=== PATIENT | male | born 1995 | race Two or more races ===

== ENCOUNTER 2024-05-20 09:07 | Emergency (ER) | payer MEDICAID, SELFPAY ==
[2024-05-20 09:10] VITALS: BP 116/61; PULSE 115; RESP 14; TEMP 36.9; O2SAT 96
[2024-05-20 09:20] VITALS: BMI 36.5
--- NOTE | 2024-05-20 09:44 | EDNOTE_ITS ---
ED Seizures RME/HPI General Chief Complaint: Seizure Stated Complaint: SEIZURE Time Seen by Provider: 05/20/24 09:22 Arrival date/time: 05/20/24 09:07 RME / HPI RME / HPI Narrative: DR. K[facility]IS[facility] MAIN ED EVALUATION: 29-year-old male patient with a history of seizure disorder on Vimpat brought in by ambulance for seizure at home witnessed by , unknown duration. Patient states he may have forgotten to take his medication this morning. Related Data Allergies Allergy/AdvReac Type Severity Reaction Status Date / Time No Known Allergies Allergy Verified 05/20/24 09:25 Review of Systems Review of Systems Systems Reviewed: All systems reviewed, normal except as documented Narrative Review of Systems: GEN: No fever, no chills, no weight loss EYES: No discharge, no visual changes, no pain HEENT: No ear pain, no congestion, no sore throat PULM: No shortness of breath, no cough, no congestion CV: No chest pain, no dyspnea on exertion, no palpitations GI: No nausea, no vomiting, no diarrhea, no pain, no constipation : No frequency, no urgency and no dysuria MUSC/SKEL: No joint pain, no back pain SKIN: No rash PSYCH: No hallucinations, no depression HEME/LYMPH: No easy bleeding or bruising tendencies NEURO: No weakness, no headache, + seizure Past Medical History Past Medical History NEUROLOGIC: Positive Seizures Social History SMOKING STATUS: Never smoker SUBSTANCE USE: does not use ALCOHOL: Never ED Exam Narrative Physical exam: GENERAL APPEARANCE: alert and oriented x 4, well-developed, well-nourished, no acute distress VITALS: All vitals were reviewed and the pulse ox is 96% on room air, which is normal according to my interpretation. HEENT: Normocephalic, atraumatic; pupils equal, round, reactive to light; EOMI; mucous membranes pink, moist; oropharynx clear NECK: Supple LUNGS: CTABL; no wheezes, no rales, no rhonchi HEART: Regular rate, regular rhythm; normal S1, S2; no murmurs ABDOMEN: non distended; normal BS; soft, no tenderness, no guarding, no rebound; no masses, no organomegaly, no hernia BACK: no CVA tenderness EXTREMITIES: atraumatic; no edema NEUROLOGIC: awake; alert and oriented x4; cranial nerves II-XII grossly intact; no focal sensory or motor deficits PSYCHIATRIC: appropriate mood and affect SKIN: warm, dry, normal color; no rashes Course Quality Measures none Orders Category Date Time Status LORazepam [Ativan] Med 05/20/24 09:43 Discontinued 1 mg PO X1 ONE Lacosamide [Vimpat] Med 05/20/24 09:43 Discontinued 50 mg PO X1 ONE Lacosamide [Vimpat] Med 05/20/24 10:09 Discontinued 50 mg PO X1 ONE Vital Signs Vital signs: Vital Signs Temperature 98.4 F 05/20/24 09:10 Pulse Rate 115 H 05/20/24 09:10 Respiratory Rate 14 05/20/24 09:10 Blood Pressure 116/61 05/20/24 09:10 Pulse Oximetry (%) 96 05/20/24 09:10 Oxygen Delivery Method Room Air 05/20/24 09:10 Seizure MDM Narrative MDM Narrative:: Clari Lin am scribing for and in the presence of Dr. Kaiser. Patient data External records reviewed:: [facility] and EMS form Clinical information provided by:: patient and EMS Social determinants that could affect healthcare access:: none Patient has the following chronic illnesses:: Seizure disorder on Vimpat. How is presenting disease/condition affected by chronic disease/condition?: caused by Evaluation data The following diagnostics were reviewed and interpreted by me:: other (specify) (none) Lab and/or radiology exams considered but not ordered:: none Interpretation Summary: n/a Medications / Prescriptions Medications or Prescriptions considered but not ordered:: none Medication administrations:: Medication Administration History Discontinued Medications Lacosamide (Lacosamide 50 Mg Tablet) 50 mg PO X1 ONE Stop: 05/20/24 09:44 Last Admin: 05/20/24 10:06 Dose: 50 mg Documented By: Lacosamide (Lacosamide 50 Mg Tablet) 50 mg PO X1 ONE Stop: 05/20/24 10:10 Last Admin: 05/20/24 10:18 Dose: 50 mg Documented By: VAMSI Lorazepam (Lorazepam 0.5 Mg Tablet) 1 mg PO X1 ONE Stop: 05/20/24 09:44 Last Admin: 05/20/24 10:05 Dose: 1 mg Documented By: DO see above Consultations Consultation(s) initiated? (list below): No Diagnosis Seizure Differential Diagnosis: generalized seizure, epileptic seizure and other (medication noncomplaince) Most likely diagnosis given after review of the tests above:: Recurrent seizures Admission Indicated Admission indicated?: not indicated Admission Request Was there a request for admission?: No Disposition Plan Disposition Plan: Discharge Discharge Attestation Discharge Attestation: The patient and all family members were given an opportunity to ask questions and understood the discharge instructions. Discharge instructions specifically effects, indications for sooner follow up or return to the emergency department, and the expected course of current diagnosis. Patient condition: Stable Discharge Plan Plan Patient Disposition: HOME (Self Care) Prescriptions/Referrals Referrals: Jane Juarez [Primary Care Provider] - In 1 week Problem List Clinical Impression: Recurrent seizures Patient/Caregiver Discharge Instructions Education Materials: ED Seizure, Recurrent (Adult) Print Language: Kosovan Stand Alone Forms: Kelli Award Info., Patient Portal Info Letter
[2024-05-20] MEDS: LORazepam 0.5 MG TABLET 1 MG PO (10:05)
[2024-05-20] MEDS: LACOSAMIDE 50 MG TABLET PO ×2 (10:06→10:18)
[2024-05-20 11:54] VITALS: BP 109/65; PULSE 75; RESP 18; O2SAT 95
== END 2024-05-20 11:54 | disposition home or self-care (01) ==
PROVIDERS: Emergency Provider Emergency Medicine
DX: R56.9 Unspecified convulsions (principal)
CPT/HCPCS: 99282; A9270